=== PATIENT | female | born 1960 | race Caucasian/White ===

== ENCOUNTER → 2023-12-19 07:18 | Outpatient (REF) | payer BC, SELFPAY | LOC: WDC 07:18 | PROVIDERS: ATTENDING PHYSICIAN Family Medicine | DX: Z12.31 Encounter for screening mammogram for malignant neoplasm of breast (principal) | CPT/HCPCS: 77063; 77067 ==

== ENCOUNTER → 2024-04-10 07:34 | Outpatient (REF) | payer SELFPAY | LOC: RAD 07:34 | PROVIDERS: ATTENDING PHYSICIAN Family Medicine | DX: E78.49 Other hyperlipidemia (principal) | CPT/HCPCS: 75571 ==

== ENCOUNTER → 2024-04-15 08:56 | Outpatient (REF) | payer BC, SELFPAY | LOC: HWRAD 08:56 | PROVIDERS: ATTENDING PHYSICIAN Family Medicine | DX: Z87.891 Personal history of nicotine dependence (principal) | CPT/HCPCS: 71271 ==

== ENCOUNTER → 2024-12-22 08:00 | Outpatient (REF) | payer BC, SELFPAY | LOC: WDC 08:00 | PROVIDERS: ATTENDING PHYSICIAN Family Medicine | DX: Z12.31 Encounter for screening mammogram for malignant neoplasm of breast (principal) | CPT/HCPCS: 77063; 77067 ==